=== PATIENT | female | born 1980 | race Caucasian/White ===

== ENCOUNTER 2021-09-01 10:45 | Outpatient (CLI) | payer OTHER, SELFPAY ==
[2021-09-01 11:33] LABS: Hematocrit 42.9 % (37.0-47.0); Hemoglobin 14.3 g/dL (12.0-15.0); Mean Corpuscular HGB Conc 33.3 g/dl (32-36); Mean Corpuscular Hemoglobin 32.4 pg (26-34); Mean Corpuscular Volume 97.1 fl (80-100); Mean Platelet Volume 9.8 fl (7.4-10.4); Platelet Count Result 277 k/mm3 (150-375); Red Blood Count 4.42 M/mm3 (4.2-5.4); Red Cell Distribution Width 12.1 % (11.5-14.5); White Blood Count 8.1 K/mm3 (4.5-10.0)
[2021-09-01 11:54] LABS: Anion Gap 5 mmol/L (8-16); Blood Urea Nitrogen 16 mg/dL (7-17); Calcium 9.2 mg/dL (8.4-10.2); Carbon Dioxide 29 mmol/L (22-30); Chloride 103 mmol/L (98-107); Estimated Glomerular Filt Rate > 60; Glucose 95 mg/dL (65-110); Potassium 4.5 mmol/L (3.4-5.0); Sodium 137 mmol/L (137-145)
== END 2021-09-01 10:46 | disposition home or self-care (01) ==
LOC: ANHLAB 10:46
PROVIDERS: Visit Provider Surgery Plastic and Reconstructive Surgery
DX: Z01.812 Encounter for preprocedural laboratory examination (principal)
CPT/HCPCS: 36415; 80048; 83735; 85027

== ENCOUNTER → 2021-09-13 02:31 | Outpatient (CLI) | payer OTHER, SELFPAY ==
[2021-09-13 20:05] LABS: SARS-CoV-2 RNA PCR Negative
== END ==
PROVIDERS: Visit Provider Surgery Plastic and Reconstructive Surgery
DX: Z01.812 Encounter for preprocedural laboratory examination (principal); Z20.822 Contact with and (suspected) exposure to COVID-19
CPT/HCPCS: C9803; U0003; U0005

== ENCOUNTER 2021-09-16 01:18 | Day surgery (SDC) | payer OTHER, SELFPAY ==
[2021-09-13 09:28] VITALS: BMI 24.0
--- NOTE | 2021-09-13 09:45 | PC.NURSE ---
Report to the Outpatient Waiting Room, entrance under the green pavilion located off [facility], at time 1045 on date 09/16/21. OR Time: 1245. - You and your visitor will be asked a series of questions to screen for COVID 19 for your protection. - A mask is required within the hospital. - Only one visitor is allowed at this time. Patient visitors will be guided where to wait when not with patient. Preoperative COVID Testing Requirements: No COVID Test needed if: (proof is required; if not received patient will have Rapid Test prior to entry) - Patient has received COVID Vaccine at least 14 days prior to procedure date or - Patient has positive COVID test result within last 90 days of surgery date. COVID Test needed if above criteria is not met If not COVID vaccinated a COVID test must be conducted within 72 hours of surgery and patient is asked to isolate self from time of testing until procedure. You will go to the [facility] for your COVID testing. The [facility] is located at the corner of [address] [facility]. COVID TEST: 09/13 AT 0900 You will only be called if COVID results are positive and your surgeon may reschedule your elective surgery date. Patients may have clear liquids (water, carbonated beverages, clear teas, apple juice) until 3 hours prior to surgery with a maximum of 20 ounces. - No food from midnight until time of surgery - Infants may have breast milk until 4 hours before surgery, infant formula 6 hours prior to surgery. - Children will be allowed to drink immediately following surgery. If applicable, please bring a bottle or sippy cup to assist with drinking. Juice, water, soda, and popsicles are readily available. For infants on formula, please bring formula the day of surgery. Pacifiers are allowed. Take the following medications with a SIP of water the morning of surgery: METOPROLOL, FAMCICLOVIR, THYROID, PROGESTERONE, LORAZEPAM Medications to discontinue per physician: VITAMINS/SUPPLEMENTS Date to take last dose: 09/12/21 Please no make-up, nail belarusian, hairspray, perfume, deodorant, or body powder the day of surgery. No jewelry (including any body piercings) or valuables the day of surgery, leave them at home. Please take a shower or bath the night before, or the morning of, surgery with an antibacterial soap. Wear comfortable, loose fitting clothing. Children are encouraged to wear pajamas. - Jewelry must be removed prior to entering the operating room. Rings and piercings that are not removed may be cut off. - The hospital will not accept responsibility for valuables. - Please leave all valuables, including medications, at home the day of surgery. If you are going home after surgery, a licensed jinrikisha driver must drive you home. - NO public transportation without another adult. - We recommend that an adult stay with you for 24 hours following discharge. - We also recommend that you do not drive, make important decision, drink alcoholic beverages, or take any drugs that were not prescribed by your health care provider for at least 24 hours after your discharge time. For Pediatric surgeries, we recommend two adults accompany the child home (only one inside the building at this time). Follow any additional instructions given to you from your surgeon. Telephone instructions given to KEVIN JUAN and asked if any additional questions and then verbalized understanding. Patient advised to call surgeon office or pre surgery nurse liaison [phone] if any additional questions.
[2021-09-16] VITALS (8 sets, daily range): BP systolic 100–123; BP diastolic 61–77; PULSE 65–90; RESP 14–20; TEMP 36.2–36.9; O2SAT 98–100
[2021-09-16] MEDS: LACTATED RINGERS 1,000 ML 30 ML IV CONT ×3 (11:35→15:45)
--- NOTE | 2021-09-16 11:45 | WPDANESEPPF ---
Anes - Initial Pre Proc Eval Procedure: Operation Date: 09/16/21 12:45 Proposed Procedures p Bilateral Breast Mastopexy with Galaflex - Steve Varma MD Date/Time: 09/16/21 11:45 Surgeon: Steve Varma MD Pre Op Diagnosis: breast ptosis Patient Data Age: 41 Gender: F Height: 1.55 m Weight: 58 kg Last Vital Signs Temp 36.9 C 09/16/21 11:16 Pulse 71 09/16/21 11:16 Resp 16 09/16/21 11:16 BP 100/61 09/16/21 11:16 Pulse Ox 99 09/16/21 11:16 Allergies Allergy/AdvReac Type Severity Reaction Status Date / Time morphine AdvReac Mild Itching Verified 09/16/21 11:07 Home Medications Medication Instructions Recorded Confirmed Type spironolactone 25 mg tablet 25 mg PO DAILY 03/01/21 09/16/21 History docusate sodium 100 mg capsule 100 mg PO DAILY #14 cap 09/02/21 09/13/21 Rx ondansetron HCl 4 mg tablet 4 mg PO Q8H #21 tablet 09/02/21 09/13/21 Rx oxycodone-acetaminophen 5 mg-325 1 tablet PO Q6H PRN #30 tablet 09/06/21 09/13/21 Rx mg tablet Estrogen-Testosterone 1 applic TOPICAL DAILY 09/13/21 09/16/21 History ascorbic acid (vitamin C) [Vitamin 250 mg PO DAILY 09/13/21 09/16/21 History C] famciclovir 250 mg PO BID 09/13/21 09/16/21 History lorazepam 1 mg PO BID PRN 09/13/21 09/16/21 History metoprolol tartrate 25 mg PO BID 09/13/21 09/16/21 History multivitamin 1 tablet PO DAILY 09/13/21 09/16/21 History progesterone micronized 70 mg PO DAILY 09/13/21 09/16/21 History thyroid (pork) 25 mg PO DAILY 09/13/21 09/16/21 History Laboratory Tests 09/16/21 11:00 Cotinine Pending Patient hx anesthesia problems: post op nausea/vomiting Family hx anesthesia problems: none Results Review: All pre-operative results and documents have been reviewed as part of the pre-operative evaluation. [facility] Past Medical History Medical History (Updated 09/15/21 @ 14:45 by Jm Hyman DO) History of tachycardia Hypothyroidism PONV (postoperative nausea and vomiting) Surgical History Surgical History History of breast augmentation History of breast implant removal History of endometrial ablation History of mastopexy History of nasal septoplasty History of vaginal hysterectomy Family History Family History Mother Hypertension PVD (peripheral vascular disease) Iliac artery stenosis, bilateral Father Hypertension DM II (diabetes mellitus, type II), controlled Obesity Social History Social History (Updated 03/01/21 @ 17:27 by Vanessa Wallace) Smoking status: Never smoker Alcohol intake: current Alcohol use details: 4/MONTH Substance use: current Substance use type: marijuana Other substance usage details: EDIBLES Last use: 09/06/21 Living arrangements: with family Spiritual care concerns: No Anes - Eval Final PreProcedure Day of Procedure 09/16/21 11:45 Patient weight: normal Heart: regular rate and rhythm Lungs: clear to auscultation and normal air movement Airway: Mallampati scale class II Neurological: alert and oriented Last oral intake: >/= 8 hours ASA classification: III Emergent: no Anesthetic plan: proceed Anesthesia type and monitoring: general LMA and standard monitoring Results Review: All pre-operative results and documents have been reviewed as part of the pre-operative evaluation. Informed Consent: The patient's anesthetic plan and its attendant risks and benefits were discussed with the patient/family/POA. Questions were solicited and answers provided to the satisfaction of the patient/family/POA.
[2021-09-16] MEDS: SCOPOLAMINE 1.5 MG PATCH TRANSDERM (11:57)
[2021-09-16 12:03] LABS: Magnesium 1.6 mg/dL (1.6-2.3)
--- NOTE | 2021-09-16 12:16 | WPDHPUPDATE1 ---
History and Physical Update Update Date/Time: 09/16/21 12:16 History and Physical has been reviewed, including an updated exam of the patient. There are NO changes in the patient's condition. Risks, benefits, and alternatives have been discussed and questions answered. Patient agrees to proceed with procedure.
--- NOTE | 2021-09-16 12:25 | P.OP_ITS ---
Procedure Note - Detailed Date of Procedure 09/16/21 Pre-op Diagnosis breast ptosis Post-op Diagnosis same Procedure Performed Bilateral mastopexy with Galaflex Surgeon Steve Varma MD Anesthesia general Findings Inverted T repeat mastopexy (with history of augmentation / implant removal) Superior pedicle Galaflex REF [id number] Description of Procedure Preoperatively the risks, benefits, alternatives were discussed in extensive detail. I want her to be very realistic about the risks involved as well as expectations. She has a history of augmentation mastopexy and subsequently removal of implants. I had a lengthy discussion how this can increase her risk of complications especially wound breakdown, skin loss, nipple sensation change, and nipple loss. She understands there is always the risk of loss of skin leading to open wounds deformities and need for additional procedures. This was outlined in clear detail so she is well informed. She understands all her options including but not limited to not having surgery. She states she clearly understands this as well as her aunt that is with her. She would like to proceed. All questions answered. Consent obtained. She was marked in the standing position in the preoperative holding area. She was taken to the operating room placed supine on the operating room table. Anesthesia was provided by anesthesiology and prepped and draped in a standard sterile fashion. Surgical time-out was taken. Stab incisions were made and I tumesced with just a low volume of tumescent solution. Patient was placed this in a sitting position and I tailor tacked the breast into position. Then placed supine. I marked out the nipple-areolar complex at 38 mm. I de-epithelialized the superior pedicle. I created inferior auto augmentation flaps which were de- epithelialized. I just elevated was necessary the breast in order to inset these auto augmentation flaps which were sutured into place with 2-0 Vicryl. I then trimmed Galaflex which had been soaking in Betadine triple antibiotic solution and was introduced into the pocket. I sutured into place with 2-0 Vicryl. I then reapproximated the flaps and closed using 2-0 Vicryl with vertical. 2-0 tensile strength Stratafix along the IMF. This is followed by 3- 0 Stratafix along the IMF and 3-0 Monocryl along the vertical. 3-0 Stratafix around the areola. I then ran everything with a running subcuticular 4-0 Monocryl. Final closure was with glue. At the end of the procedure she had good color and capillary refill. Dressings were placed. She was placed in a surgical bra. Woken taken the PACU without difficulty. All instrument sponge counts were correct at the end of the case. Estimated Blood Loss 30 Drains No Packing No Pathology none sent Complications No immediate complications Condition stable Disposition PACU
[2021-09-16] MEDS: ceFAZolin 2 GM/D5W 50 ML 2 GM/50 ML BAG IVPB (12:26)
[2021-09-16] MEDS: TRANEXAMIC ACID 1,000MG/ISO100 1,000 MG/100 ML BAG 200 MG IVPB (12:28)
[2021-09-16] MEDS: LACTATED RINGERS IRRIG 1,000 ML, LIDOCAINE HCL 1% LOCAL INJ 50 ML, EPINEPHrine HCL INJ ... INFILTRATE (13:30)
[2021-09-16] MEDS: fentaNYL CITRATE INJ (*CRX) 100 MCG/2 ML VIAL 25 MCG IV PUSH ×4 (15:18→15:45)
--- NOTE | 2021-09-16 15:47 | SUR.PHASEI ---
PT C/O ITCHING ALL OVER. NO RASHES
[2021-09-16] MEDS: diphenhydrAMINE HCl INJ 50 MG/ML VIAL 25 MG IV PUSH (15:55)
--- NOTE | 2021-09-16 15:56 | SUR.PHASEI ---
PT AWAKE AND ALERT. TALKATIVE. BENADRYL GIVEN IV FOR ITCHING. PT STATES SHES READY TO MOVE TO [place].
[2021-09-16 16:03] LABS: Urine Cotinine NEGATIVE
[2021-09-16] MEDS: oxyCODONE HCL (*CRX) 5 MG TAB IR PO (16:34)
== END 2021-09-16 17:15 | disposition home or self-care (01) ==
PROVIDERS: Visit Provider Surgery Plastic and Reconstructive Surgery
PROC: (CPT 19316; principal; 2021-09-16 12:45)
DX: Z41.1 Encounter for cosmetic surgery (principal); N64.81 Ptosis of breast; E03.9 Hypothyroidism, unspecified; Z79.899 Other long term (current) drug therapy; F12.90 Cannabis use, unspecified, uncomplicated
CPT/HCPCS: 19316; 15777 ×2; 80307; 83735; A9270; J0171; J0690; J1100; J1170; J1200; J1580; J2250; J2405; J2704; J3010; J7120

== ENCOUNTER 2021-09-22 08:52 | Outpatient (CLI) | payer OTHER, SELFPAY ==
[2021-09-22 09:51] LABS: Magnesium 2.2 mg/dL (1.6-2.3)
== END 2021-09-22 08:53 | disposition home or self-care (01) ==
PROVIDERS: Visit Provider Surgery Plastic and Reconstructive Surgery
DX: Z01.812 Encounter for preprocedural laboratory examination (principal)
CPT/HCPCS: 36415; 83735